=== PATIENT | male | born 1940 | race Caucasian/White ===

== ENCOUNTER → 2017-08-28 08:21 | Outpatient (CLI) | payer MEDICARE, OTHER, SELFPAY ==
[2017-08-28 10:08] VITALS: PULSE 100; PULSE 101; PULSE 109; PULSE 110; PULSE 79; PULSE 82; PULSE 92; PULSE 97; O2SAT 87; O2SAT 91; O2SAT 92; O2SAT 93; O2SAT 94; O2SAT 98
--- NOTE | 2017-08-28 10:12 | CPS ---
Patient wears 2lpm O2 at home PRN with ambulation. Started test on room air SpO2 dropped to 87% by the 2nd minute. Placed patient on 2 lpm O2 for the rest of the test.
--- NOTE | 2017-08-28 13:24 | WT_ITS ---
PSN 6 Minute Walk Test - 6 Minute Walk Test 6 Minute Walk Test: 6 Minute Walk Test PSN:6-Minute Walk Test Start: 08/28/17 10: 07 Freq: Status: Active Protocol: [id number] Document 08/28/17 10:08 MELO (Rec: 08/28/17 10:13 MELO [id number]) 6 Minute Walk Test Date Performed 08/28/17 Time Performed 09:20 Height 5 ft 6 in Weight: 155 lb Weight in Pounds 155.[address]: Cornel Armando Assistive device used: None Pre-test Oxygen Delivery Method Room Air Pulse Ox (%) 93 Pulse Rate (60-100 beats/min) 79 Dyspnea [place] Scale (0-10) 2 Exertion Ana Maria Scale (6-20) 6 1st minute Oxygen Delivery Method Room Air Pulse Ox (%) 91 Pulse Rate (60-100 beats/min) 92 2nd minute Oxygen Delivery Method Room Air Pulse Ox (%) 87 Pulse Rate (60-100 beats/min) 100 3rd minute Oxygen Flow Rate (L/min) (L/min) 2 Oxygen Delivery Method Nasal Cannula Pulse Ox (%) 94 Pulse Rate (60-100 beats/min) 101 H 4th minute Oxygen Flow Rate (L/min) (L/min) 2 Oxygen Delivery Method Nasal Cannula Pulse Ox (%) 92 Pulse Rate (60-100 beats/min) 97 5th minute Oxygen Flow Rate (L/min) (L/min) 2 Oxygen Delivery Method Nasal Cannula Pulse Ox (%) 92 Pulse Rate (60-100 beats/min) 109 H 6th minute Oxygen Flow Rate (L/min) (L/min) 2 Oxygen Delivery Method Nasal Cannula Pulse Ox (%) 91 Pulse Rate (60-100 beats/min) 110 H Dyspnea [place] Maria Scale (0-10) 3 Exertion Ana Maria Scale (6-20) 13 Post-test Oxygen Flow Rate (L/min) (L/min) 2 Oxygen Delivery Method Nasal Cannula Pulse Ox (%) 98 Pulse Rate (60-100 beats/min) 82 Full Laps Walked 18 Partial Lap, Number of Tiles Walked 10 Total Distance Walked (ft) 1072 08/28/17 10:12 Cardiopulmonary Services by Fallon Virk Patient wears 2lpm O2 at home PRN with ambulation. Started test on room air SpO2 dropped to 87% by the 2nd minute. Placed patient on 2 lpm O2 for the rest of the test. Initialized on 08/28/17 10:12 - END OF NOTE - Interpretation Interpretation: The patient ambulated 1072 feet over the course of 6 minutes beginning on room air without assistive devices or breaks. Pretesting oxygen saturation was noted to be 93% on room air. With ambulation, the ant oxygen saturation was 87% at minute #2 of testing. 2 L/min of supplemental oxygen was applied and the patient was able to complete the remainder of the test while maintaining oxygen saturations at or above 88%. The patient did develop physiologic tachycardia with exertion. These findings are consistent with a respiratory limitation to physical exercise. - Recommendations Recommendations: 2 L/min of supplemental oxygen she be utilized with exertion.
== END ==
PROVIDERS: Visit Provider Internal Medicine Critical Care Medicine
DX: Z99.81 Dependence on supplemental oxygen (principal)
CPT/HCPCS: 94618

== ENCOUNTER 2017-11-05 10:09 | Inpatient (IN) | payer MEDICARE, OTHER, SELFPAY ==
[2017-11-05] VITALS (16 sets, daily range): BP systolic 131–162; BP diastolic 56–81; PULSE 78–96; RESP 18–36; TEMP 36.5–36.9; O2SAT 88–100; BMI 26.5; BMI 25.8
--- NOTE | 2017-11-05 10:29 | RAD_ITS ---
STUDY: X-RAY CHEST REASON FOR EXAM: Male, 77 years old. Chest pain and shortness breath. TECHNIQUE: Single frontal view of the chest. COMPARISON: None. FINDINGS: The lungs are hyperexpanded. There are coarsened interstitial markings suggestive of mild chronic fibrosis. No gross focal infiltrates. No gross effusions. Normal size heart. Normal mediastinum and thomas. Normal visualized pulmonary arteries. Normal visualized aortic arch and descending thoracic aorta. There are diffuse degenerative changes of the visualized thoracic spine. There is degenerative osteoarthritis of the bilateral shoulders. There is no demonstrated abnormality of the visualized soft tissue structures of the upper abdomen. RAD/Chest 1 View (Portable) IMPRESSION: There are findings consistent with COPD. There is no evidence of acute chest disease. Electronically Signed: Drake Nails MD at 10:51 EDT , Service support ,
--- NOTE | 2017-11-05 10:29 | EKG12_ITS ---
Test Reason : SOB Blood Pressure : / mmHG Vent. Rate : 084 BPM Atrial Rate : 084 BPM P-R Int : 140 ms QRS Dur : 086 ms QT Int : 380 ms P-R-T Axes : 082 -49 087 degrees QTc Int : 449 ms Normal sinus rhythm with sinus arrhythmia Indeterminate axis Borderline ECG Confirmed by LYDIA POTTER, MAGALY ([id number]), food expeditor GENARO VEGA ([id number]) on 11/08/2017 8:58:56 AM Referred By: LUTHER Confirmed By:MAGALY FREEMAN MD
--- NOTE | 2017-11-05 10:31 | ED.VISSUMM ---
- ER Visit Summary Date of Service: 11/05/17 Chief Complaint: Shortness of breath History of Present Illness: The patient is a 77 M history of COPD on 2 L oxygen at home. States since Monday he has had increasing shortness of breath. Mild cough. Primarily nonproductive. A few times clear phlegm. No chest pain. No hemoptysis. No fever. No history of DVT or PE. No recent immobilization. No leg pain or swelling. Physical Examination: Older male vital signs stable. He is 100% on oxygen. Without oxygen is 88. But is normally on 2-3 L at home. H EENT exam unremarkable. Neck nontender. No JVD. Lungs prolonged respiratory phase bilaterally. Equal symmetrical. Diminished in the bases. Expiratory wheezing throughout. Inspiratory wheezing bilaterally. No rhonchi. No rales. Heart regular rate and rhythm rate about 90. No murmur abdomen soft and nontender. Normal bowel sounds. No peritoneal signs. Moving all 4 extremities. Neurovascularly intact. Calves nontender without edema or cords. Back nontender. Chest wall nontender. No crepitance. Neurologically is awake alert with no focal motor deficits. Test Results: Chest x-ray shows chronic changes no acute process. No pneumonia. Read both by myself and radiologist. EKG sinus rhythm rate of 84 no acute signs of ischemia. White count of 16.1. Hemoglobin is 16. No bands. Electrolytes unremarkable. Normal gap. Normal creatinine. Troponin normal. Emergency Department Course and Treatment: Patient with dyspnea secondary to acute exacerbation of COPD. Will receive increased oxygen nasal cannula. Aerosols both DuoNeb and albuterol. IV Solu-Medrol. On repeat exam at 11:40 AM patient is definitely improved. However he still wheezing. Has poor air movement. And will need to be admitted to the hospital. I discussed that both of the patient and his and are comfortable with the plan. Treatment Plan: I spoke to the hospitalist the patient will be admitted. Disposition: Admission Impression: Acute dyspnea with hypoxia Acute exacerbation of COPD This note was generated with [employer] dictation software. It may contain incorrect words, spelling, and punctuation that were not noted in review of the chart prior to signing ED Disposition - Plan for ED Patient: Chief Complaint: Shortness of Breath Referrals: Care Physician,No Primary [Primary Care Provider] -
[2017-11-05] MEDS: MethylPREDNISolone 125 MG/2 ML Vial IV (10:41)
[2017-11-05] MEDS: Albuterol 2.5 MG/3 ML VIAL.NEB. INHALATION ×3 (10:47→10:50)
[2017-11-05] MEDS: Ipratropium/Albuterol Sulfate 3 ML AMPUL.NEB INHALATION ×4 (10:47→23:06)
[2017-11-05 10:51] LABS: Absolute Lymphocyte Count 1.01 X10^3/ul (0.83-4.51); Absolute Neutrophil Count 13.5 X10^3/uL (2.0-7.7); Basophil# 0.02 X10^3/uL; Basophil% 0.1 % (0-1); Eosinophil# 0.01 X10^3/uL; Eosinophils% 0.1 % (0-5); Hematocrit 48.9 % (40-54); Lymphocyte # 1.01 X10^3/ul (4.0); Lymphocyte % 6.3 % (19-41); Mean Corp Hgb Conc 32.7 g/gl (32-36); Mean Corpuscular Hgb 30.4 pg (27.0-32.0); Mean Corpuscular Volume 92.8 fL (80-94); Mean Platelet Vol. 11.1 fl (6.2-12.0); Monocyte# 1.53 X10^3/uL; Monocyte% 9.5 % (0-10); Neutrophil % 83.8 % (47-70); Platelet Count 145 K/mm3 (150-450); RBC Distribution Width CV 13.4 % (11.6-14.6); RBC Distribution Width SD 44.7 fl (35.1-43.9); Red Blood Count 5.27 M/mm3 (4.6-6.2); White Blood Count 16.1 K/mm3 (4.4-11.0)
[2017-11-05 10:52] LABS: Differential Indicated SCAN CRITERIA MET; POSITIVE COUNT NO; POSITIVE DIFFERENTIAL YES; POSITIVE MORPHOLOGY NO
[2017-11-05 10:56] LABS: Anion Gap 5 (5-15); BUN 17 mg/dL (7-18); BUN/Creat Ratio 19.6 RATIO (10-20); Calcium,Total 8.7 mg/dL (8.5-10.1); Chloride 98 mmol/L (98-107); Creatinine, Serum 0.87 mg/dL (0.70-1.30); EST Glomerular Filtration Rate 90 mL/min (>60); Est Glom Filt Rate - Afr Amer 109 mL/min (>60); Estimated Creatinine Clearance 62.13 ml/min; Glucose 96 mg/dL (74-106); Potassium 4.5 mmol/L (3.5-5.1); Sodium Level 136 mmol/L (136-145)
[2017-11-05 11:13] LABS: Platelet Estimate ADEQUATE (ADEQ); Platelet Morphology LARGE
--- NOTE | 2017-11-05 11:48 | HP.PCM_ITS ---
Problem List (1) COPD exacerbation Status: Acute (2) History of cataract removal with insertion of prosthetic lens Status: Resolved (3) SOB (shortness of breath) Status: Chronic (4) Tobacco abuse Status: Chronic (5) Stage 3 severe COPD by GOLD classification Status: Chronic (6) Chronic hypoxemic respiratory failure Status: Chronic History of Present Illness Date of Admission: 11/05/17 Chief Complaint: Shortness of breath and cough worse since Monday The patient is a 77 year old M with history of COPD, stage III or criteria, chronic hypoxic respiratory failure on 2 L of home oxygen, current smoker came to ER with shortness of breath, progressively getting worse since Monday along with cough. Patient denies any fever or chills. Patient gets short of breath even going to bathroom/mild exertion. He is wheezing. Patient also has frequent urination, especially at night and complete emptying of bladder probably related to undiagnosed BPH. Denies burning micturition. Chest x-ray done in the ER shows right lower lobe atelectasis probably chronic fibrosis. No evidence of acute abnormality. [] Past Medical History Past Medical History (Chronic Problems): Chronic Problems (Last Reviewed 09/11/17 @ 08:03 by Mi Marrero NP-C) SOB (shortness of breath) (Chronic) Tobacco abuse (Chronic) Stage 3 severe COPD by GOLD classification (Chronic) Chronic hypoxemic respiratory failure (Chronic) Medical History: Medical History (Last Reviewed 09/11/17 @ 08:03 by Mi Marrero [employer]-C) SOB (shortness of breath) (Chronic) R06.02 Tobacco abuse (Chronic) Z72.0 Stage 3 severe COPD by GOLD classification (Chronic) J44.9 Chronic hypoxemic respiratory failure (Chronic) J96.11 Allergies No Known Allergies Allergy (Verified 11/05/17 10:09) pollens Allergy (Severe, Uncoded 11/05/17 10:09) Unknown Home Medications: Ambulatory Orders Medication Instructions Recorded albuterol sulfate HFA 90 1 - 2 puff INHALATION Q4H PRN PRN 11/01/17 mcg/actuation aerosol inhaler #3 device tiotropium 2.5 mcg-olodaterol 2.5 2 puff INHALATION QDAY #3 device 11/01/17 mcg/actuation mist for inhalation Surgical History: Surgical History (Last Reviewed 09/11/17 @ 08:03 by MELVIN Romero) History of cataract removal with insertion of prosthetic lens (Resolved) Z98.49 , Z96.1 H/O tooth extraction K08.409 03/06/17, 2 teeth Surgical History: noncontributory Smoking Status: Current every day smoker - Still smokes about half pack per day. Smoking since teenage about a pack per day previously - *Family History Paternal Family History: Family History (Last Reviewed 09/11/17 @ 08:03 by MELVIN Romero) Brother Osteoporosis Father Cancer Mother Arthritis Osteoporosis History Items: No pertinent history Review of Systems Constitutional: Denies: Chills, Fever, Weight Change HEENT: Denies: Head Aches, Sinus Congestion, Sinus Drainage Cardiovascular: Denies: Chest Pain, Palpitations Respiratory: Reports: Cough, Shortness of breath at rest, Shortness of breath upon exertion, Wheezing. Denies: Sputum production Gastrointestinal: Denies: Abdominal Pain, Nausea, Vomiting Genitourinary: Denies: Dysuria Musculoskeletal: Denies: Joint Pain, Joint Tenderness Skin: Denies: Rash, Wounds Neurological: Denies: Numbness, Tingling, Focal weakness Psychiatric: Denies: Anxiety, Depression, Homicidal Ideations, Suicidal Ideations Hematologic/ Lymphatic: Denies: Easy Bruising, Easy Bleeding VTE Information - Inpt Only VTE Present on Admission: No VTE Mechan Device Prophylaxis: None VTE Pharm Prophylaxis ordered?: Yes Patient Problems: Active and Suspected Problems (Last Reviewed 09/11/17 @ 08:03 by Mi Marrero NP-Mariella) COPD exacerbation (Acute) - Physical Exam General: Alert, Oriented x3, Cooperative HEENT: Atraumatic, PERRLA, EOMI, Normocephalic Neck: Supple, No JVD, Negative Carotid Bruits Lungs: Diminished, Rhonchi, Short of Breath, Tachypneic, Wheezes Cardiovascular: Regular rate, Normal S1, Normal S2, No murmurs Abdomen: Bowel Sounds Present, Soft, Non Tender Extremities: No edema, Capillary Refill Less than 3 Seconds Skin: No rashes, No breakdown Musculoskeletal: No Tenderness to Palpation of Joints or Extremities Neurological: Cranial nerves II-XII grossly intact Psych/Mental Status: Normal Affect, Appropriate Vital Signs Pulse Resp BP Pulse Ox 95 18 147/63 H 97 11/05/17 11:43 11/05/17 11:43 11/05/17 11:43 11/05/17 11:43 Oxygen Flow Rate (L/min) 3 Oxygen Delivery Method Nasal Cannula Weight: 164 lb 8 oz Body Mass Index (BMI) 26.5 Laboratory Tests Past 24 Hrs 11/05/17 11/05/17 10:20 10:20 WBC 16.1 H RBC 5.27 Hgb 16.0 Hct 48.9 MCV 92.8 MCH 30.4 MCHC 32.7 RDW 13.4 RDW Differential 44.7 H Plt Count 145 L MPV 11.1 Immature Gran % (Auto) 0.200 Neut % (Auto) 83.8 H Lymph % (Auto) 6.3 L [place] % (Auto) 9.5 Eos % (Auto) 0.1 Baso % (Auto) 0.1 Absolute Neuts (auto) 13.5 H Absolute Lymphs (auto) 1.01 Total Counted Not Reportable Platelet Estimate ADEQUATE Plt Morphology Comment LARGE Sodium 136 Potassium 4.5 Chloride 98 Carbon Dioxide 33.0 H Anion Gap 5 BUN 17 Creatinine 0.87 Estim Creat Clear Calc 62.13 Est GFR (MDRD) Af Amer 109 Est GFR (MDRD) Non-Af 90 BUN/Creatinine Ratio 19.6 Glucose 96 Calcium 8.7 Troponin I < 0.015 Assessment/Plan All Active Problems (Last Reviewed 09/11/17 @ 08:03 by Mi Marrero NP-C) COPD exacerbation (Acute) History of cataract removal with insertion of prosthetic lens (Resolved) The patient is a 77 year old M with history of COPD, stage III or criteria, chronic hypoxic respiratory failure on 2 L of home oxygen, current smoker came to ER with shortness of breath, progressively getting worse since Monday along with cough. Patient denies any fever or chills. Patient gets short of breath even going to bathroom/mild exertion. He is wheezing. Patient also has frequent urination, especially at night and complete emptying of bladder probably related to undiagnosed BPH. Denies burning micturition. Chest x-ray done in the ER shows right lower lobe atelectasis probably chronic fibrosis. No evidence of acute abnormality. EKG shows sinus rhythm at 84 bpm sinus arrhythmia. 1. COPD exacerbation, exact etiology unclear but possible viral bronchitis: Patient is being admitted on regular MedSurg floor. On bronchodilator around- the-clock, Solu-Medrol, incentive spirometry, chest physiotherapy and Mucinex. He follows Dr. Armando as an outpatient. Mild leukocytosis; probably inflammatory/viral bronchitis. Repeat CBC 2. Acute on chronic hypoxic respiratory failure secondary to COPD exacerbation : Currently patient is on 4 L of oxygen. His baseline is 2 L of home oxygen. Oxygen therapy and support. 3. Current smoker with nicotine dependence: Advised smoking cessation. Nicotine patch ordered. DVT prophylaxis: On Lovenox 40 mg subcut daily. Laboratory Results 11/05/17 10:20: WBC 16.1 H, RBC 5.27, Hgb 16.0, Hct 48.9, MCV 92.8, MCH 30.4, MCHC 32.7, RDW 13.4, RDW Differential 44.7 H, Plt Count 145 L, MPV 11.1, Immature Gran % (Auto) 0.200, Neut % (Auto) 83.8 H, Lymph % (Auto) 6.3 L, [place] % (Auto) 9.5, Eos % (Auto) 0.1, Baso % (Auto) 0.1, Absolute Neuts (auto) 13.5 H , Absolute Lymphs (auto) 1.01, Total Counted Not Reportable, Platelet Estimate ADEQUATE, Plt Morphology Comment LARGE 11/05/17 10:20: Sodium 136, Potassium 4.5, Chloride 98, Carbon Dioxide 33.0 H, Anion Gap 5, BUN 17, Creatinine 0.87, Estim Creat Clear Calc 62.13, Est GFR ( MDRD) Af Amer 109, Est GFR (MDRD) Non-Af 90, BUN/Creatinine Ratio 19.6, Glucose 96, Calcium 8.7, Troponin I < 0.015 Clinical Impression(s) from Imaging Studies Chest X-Ray 11/05/17 10:29 IMPRESSION: There are findings consistent with COPD. There is no evidence of acute chest disease. Code Visit Inpatient E&M: 42418 Init Hosp L3
--- NOTE | 2017-11-05 11:48 | NURSING ---
DR [place] FOR DR LOU
--- NOTE | 2017-11-05 11:53 | NURSING ---
MED SURG COPD EXAC YUNIOR
[2017-11-05] MEDS: Enoxaparin 40 MG/0.4 ML Syringe SC (14:57)
[2017-11-05] MEDS: 0.9% NaCl Peripheral Flush Adult/Peds IV (14:58)
[2017-11-05] MEDS: 0.9% Normal Saline 1,000 ML 75 ML IV (14:58)
[2017-11-05] MEDS: Oseltamivir Phosphate 75 MG Capsule PO (18:01)
[2017-11-05] MEDS: guaiFENesin 1,200 MG Tablet 1200 MG PO (22:23)
[2017-11-06] VITALS (9 sets, daily range): BP systolic 145–149; BP diastolic 67–81; PULSE 79–96; RESP 18–22; TEMP 36.6; O2SAT 91–98
--- NOTE | 2017-11-06 00:59 | NURSING ---
Verbal report given to DEVANTE Sanchez to take over primary care of this patient.
[2017-11-06 06:26] LABS: Absolute Lymphocyte Count 0.64 X10^3/ul (0.83-4.51); Absolute Neutrophil Count 14.5 X10^3/uL (2.0-7.7); Basophil# 0.01 X10^3/uL; Basophil% 0.1 % (0-1); Hematocrit 43.2 % (40-54); Hemoglobin 14.2 g/dl (13.0-16.5); Lymphocyte # 0.64 X10^3/ul (4.0); Lymphocyte % 4.1 % (19-41); Mean Corp Hgb Conc 32.9 g/gl (32-36); Mean Corpuscular Hgb 30.5 pg (27.0-32.0); Mean Corpuscular Volume 92.9 fL (80-94); Mean Platelet Vol. 11.4 fl (6.2-12.0); Monocyte# 0.32 X10^3/uL; Monocyte% 2.1 % (0-10); Neutrophil # 14.51 X10^3/uL (2.7-7.7); Neutrophil % 93.5 % (47-70); Platelet Count 134 K/mm3 (150-450); RBC Distribution Width SD 43.5 fl (35.1-43.9); Red Blood Count 4.65 M/mm3 (4.6-6.2); White Blood Count 15.5 K/mm3 (4.4-11.0)
[2017-11-06 06:36] LABS: POSITIVE COUNT NO; POSITIVE DIFFERENTIAL NO; POSITIVE MORPHOLOGY NO
[2017-11-06] MEDS: Ipratropium/Albuterol Sulfate 3 ML AMPUL.NEB INHALATION ×5 (07:02→23:22)
[2017-11-06] MEDS: guaiFENesin 1,200 MG Tablet 1200 MG PO ×2 (08:11→21:10)
[2017-11-06] MEDS: Oseltamivir Phosphate 75 MG Capsule PO ×2 (08:11→21:11)
--- NOTE | 2017-11-06 11:15 | CASEMGMT ---
DEVANTE DANIEL Face to Face with patient for initial transition planning/care coordination assessment. RN CM introduced self and role at [facility]. Patient lying in bed, alert and oriented, at bedside. Patient willing to participate in assessment and is able to answer all questions appropriately. Care providers, pharmacy, and demographics verified. See link attached. Patient wishes to discharge home, denies need for home health at this time. Patient states he has no further needs or concerns at this time. CM to follow for discharge planning needs that may arise. Disposition Plan: Patient to discharge home with family support and follow-up plans in place. Will monitor need for more oxygen at home. Alejandra VILLASENOR, RN, CM
--- NOTE | 2017-11-06 13:57 | PCM.PN.HOSP ---
Patient Problems: Active and Suspected Problems (Last Reviewed 09/11/17 @ 08:03 by MELVIN Romero) COPD exacerbation (Acute) Subjective: Patient has influenza A positive. Preliminary Gram stain of sputum culture growing alpha hemolytic organism most probably streptococci. Vitals/I&O's: Vital Signs Temp Pulse Resp BP Pulse Ox 97.8 F 84 21 H 149/73 H 95 11/06/17 08:05 11/06/17 11:10 11/06/17 11:10 11/06/17 08:05 11/06/17 08:05 Oxygen Flow Rate (L/min) 2 Oxygen Delivery Method Nasal Cannula Weight: 160 lb Body Mass Index (BMI) 25.8 Intake and Output for Last 24 Hours 11/04/17 11/05/17 11/06/17 23:59 23:59 23:59 Intake Total 771 / 771 1269 / 1269 Output Total 225 / 225 Balance 771 / 771 1044 / 1044 General: Alert, Oriented x3, Cooperative HEENT: Atraumatic, PERRLA, EOMI, Normocephalic Neck: Supple, No JVD, Negative Carotid Bruits Lungs: Diminished, Rhonchi, Short of Breath, Tachypneic, Wheezes Cardiovascular: Regular rate, Regular Rhythm, Normal S1, Normal S2, No murmurs Abdomen: Bowel Sounds Present, Soft, Non Tender Extremities: No edema, Capillary Refill Less than 3 Seconds Skin: No rashes, No breakdown Musculoskeletal: No Tenderness to Palpation of Joints or Extremities Neurological: Cranial nerves II-XII grossly intact Psych/Mental Status: Normal Affect, Appropriate Microbiology Past 72 Hours 11/05/17 22:30 Sputum, Expectorated/Coughed Gram Stain - Final 11/05/17 22:30 Sputum, Expectorated/Coughed Respiratory Culture - Preliminary Alpha hemolytic organism 11/05/17 15:00 Urine, Clean Catch Legionella Antigen - Final 11/05/17 15:00 Urine, Clean Catch Streptococcus pneumoniae Antigen (M - Final 11/05/17 15:00 Mucosa - Nasopharyngeal Influenza Types A,B Direct FA (ILIA) - Final Influenzae A Laboratory Results 11/06/17 05:44: WBC 15.5 H, RBC 4.65, Hgb 14.2, Hct 43.2, MCV 92.9, MCH 30.5, MCHC 32.9, RDW 13.0, RDW Differential 43.5, Plt Count 134 L, MPV 11.4, Immature Gran % (Auto) 0.200, Neut % (Auto) 93.5 H, Lymph % (Auto) 4.1 L, [place] % (Auto) 2.1, Eos % (Auto) 0.0, Baso % (Auto) 0.1, Absolute Neuts (auto) 14.5 H, Absolute Lymphs (auto) 0.64 L, Total Counted Not Reportable Current Medications Acetaminophen (Tylenol) 650 mg PO Q6H PRN PRN PRN Reason: Mild Pain (scale 0-3)/T>100.7 Albuterol Sulfate (Ventolin Aerosols) 2.5 mg INHALATION Q2H PRN PRN PRN Reason: SHORTNESS OF BREATH Albuterol/Ipratropium (Duoneb) 3 ml INHALATION Q4H.RT [facility] Last Admin: 11/06/17 11:10 Dose: 3 ml Docusate Sodium (Colace) 200 mg PO BID PRN PRN PRN Reason: Constipation Enoxaparin Sodium (Lovenox) 40 mg SC DAILY [facility] Last Admin: 11/06/17 08:09 Dose: Not Given Guaifenesin (Mucinex) 1,200 mg PO BID [facility] Last Admin: 11/06/17 08:11 Dose: 1,200 mg Azithromycin 500 mg/ Dextrose 255 mls @ 250 mls/hr IV Q24 [facility] Stop: 11/07/17 11:02 Last Admin: 11/06/17 10:21 Dose: 250 mls/hr Methylprednisolone (Solu-Medrol) 40 mg IV Q8 [facility] Last Admin: 11/06/17 05:33 Dose: 40 mg Nicotine (Nicoderm Cq (Pbkc)) 21 mg TRANSDERM. DAILY [facility] Last Admin: 11/06/17 08:08 Dose: Not Given Ondansetron HCl (Zofran) 4 mg IV Q8H PRN PRN PRN Reason: Nausea Oseltamivir Phosphate (Tamiflu) 75 mg PO BID [facility] Stop: 11/10/17 10:01 Last Admin: 11/06/17 08:11 Dose: 75 mg Oxycodone HCl (Oxyir) 5 mg PO Q4H PRN PRN PRN Reason: Moderate Pain (pain scale 4-5) Polyethylene Glycol (Miralax) 17 gm PO DAILY [facility] Last Admin: 11/06/17 08:10 Dose: Not Given Sodium Chloride () 5 - 30 ml IV UD PRN PRN Reason: SALINE FLUSH Last Admin: 11/05/17 14:58 Dose: 10 ml Medical Necessity - Tobacco Use Smoking Status: Current every day smoker - Still smokes about half pack per day. Smoking since teenage about a pack per day previously Assessment/Plan All Active Problems (Last Reviewed 09/11/17 @ 08:03 by STARR RomeroC) COPD exacerbation (Acute) History of cataract removal with insertion of prosthetic lens (Resolved) The patient is a 77 year old M with history of COPD, stage III or criteria, chronic hypoxic respiratory failure on 2 L of home oxygen, current smoker came to ER with shortness of breath, progressively getting worse since Monday along with cough. Patient denies any fever or chills. Patient gets short of breath even going to bathroom/mild exertion. He is wheezing. Patient also has frequent urination, especially at night and complete emptying of bladder probably related to undiagnosed BPH. Denies burning micturition. Chest x-ray done in the ER shows right lower lobe atelectasis probably chronic fibrosis. No evidence of acute abnormality. EKG shows sinus rhythm at 84 bpm sinus arrhythmia. 1. COPD exacerbation, exact etiology unclear but possible viral/bacterial bronchitis: Patient is being admitted on regular MedSurg floor. On bronchodilator [id number], Solu-Medrol, incentive spirometry, chest physiotherapy and Mucinex. He follows Dr. Armando as an outpatient. 2. Acute bronchitis most probably from influenza A and/or alphahemolytic streptococci: Patient did not had a fever. Started on Tamiflu yesterday. Rocephin added because of prelim Gram stain of his sputum culture shows alpha hemolytic organisms. Repeat CBC 2. Acute on chronic hypoxic respiratory failure secondary to COPD exacerbation: Currently patient is on 4 L of oxygen. His baseline is 2 L of home oxygen. Oxygen therapy and support. 3. Current smoker with nicotine dependence: Advised smoking cessation. Nicotine patch ordered. DVT prophylaxis: On Lovenox 40 mg subcut daily. Microbiology Past 72 Hours 11/05/17 22:30 Sputum, Expectorated/Coughed Gram Stain - Final 11/05/17 22:30 Sputum, Expectorated/Coughed Respiratory Culture - Preliminary Alpha hemolytic organism 11/05/17 15:00 Urine, Clean Catch Legionella Antigen - Final 11/05/17 15:00 Urine, Clean Catch Streptococcus pneumoniae Antigen (M - Final 11/05/17 15:00 Mucosa - Nasopharyngeal Influenza Types A,B Direct FA (ILIA) - Final Influenzae A Laboratory Results 11/06/17 05:44: WBC 15.5 H, RBC 4.65, Hgb 14.2, Hct 43.2, MCV 92.9, MCH 30.5, MCHC 32.9, RDW 13.0, RDW Differential 43.5, Plt Count 134 L, MPV 11.4, Immature Gran % (Auto) 0.200, Neut % (Auto) 93.5 H, Lymph % (Auto) 4.1 L, [place] % (Auto) 2.1, Eos % (Auto) 0.0, Baso % (Auto) 0.1, Absolute Neuts (auto) 14.5 H, Absolute Lymphs (auto) 0.64 L, Total Counted Not Reportable Clinical Impression(s) from Imaging Studies Chest X-Ray 11/05/17 10:29 IMPRESSION: There are findings consistent with COPD. There is no evidence of acute chest disease. Code Visit Inpatient E&M: 97091 Subs Hosp L3
--- NOTE | 2017-11-06 14:02 | PN_ITS ---
Patient Problems: Active and Suspected Problems (Last Reviewed 09/11/17 @ 08:03 by MELVIN Romero) COPD exacerbation (Acute) Subjective: Patient has influenza A positive. Preliminary Gram stain of sputum culture growing alpha hemolytic organism most probably streptococci. Vitals/I&O's: Vital Signs Temp Pulse Resp BP Pulse Ox 97.8 F 84 21 H 149/73 H 95 11/06/17 08:05 11/06/17 11:10 11/06/17 11:10 11/06/17 08:05 11/06/17 08:05 Oxygen Flow Rate (L/min) 2 Oxygen Delivery Method Nasal Cannula Weight: 160 lb Body Mass Index (BMI) 25.8 Intake and Output for Last 24 Hours 11/04/17 11/05/17 11/06/17 23:59 23:59 23:59 Intake Total 771 / 771 1269 / 1269 Output Total 225 / 225 Balance 771 / 771 1044 / 1044 General: Alert, Oriented x3, Cooperative HEENT: Atraumatic, PERRLA, EOMI, Normocephalic Neck: Supple, No JVD, Negative Carotid Bruits Lungs: Diminished, Rhonchi, Short of Breath, Tachypneic, Wheezes Cardiovascular: Regular rate, Regular Rhythm, Normal S1, Normal S2, No murmurs Abdomen: Bowel Sounds Present, Soft, Non Tender Extremities: No edema, Capillary Refill Less than 3 Seconds Skin: No rashes, No breakdown Musculoskeletal: No Tenderness to Palpation of Joints or Extremities Neurological: Cranial nerves II-XII grossly intact Psych/Mental Status: Normal Affect, Appropriate Microbiology Past 72 Hours 11/05/17 22:30 Sputum, Expectorated/Coughed Gram Stain - Final 11/05/17 22:30 Sputum, Expectorated/Coughed Respiratory Culture - Preliminary Alpha hemolytic organism 11/05/17 15:00 Urine, Clean Catch Legionella Antigen - Final 11/05/17 15:00 Urine, Clean Catch Streptococcus pneumoniae Antigen (M - Final 11/05/17 15:00 Mucosa - Nasopharyngeal Influenza Types A,B Direct FA (ILIA) - Final Influenzae A Laboratory Results 11/06/17 05:44: WBC 15.5 H, RBC 4.65, Hgb 14.2, Hct 43.2, MCV 92.9, MCH 30.5, MCHC 32.9, RDW 13.0, RDW Differential 43.5, Plt Count 134 L, MPV 11.4, Immature Gran % (Auto) 0.200, Neut % (Auto) 93.5 H, Lymph % (Auto) 4.1 L, [place] % (Auto) 2.1, Eos % (Auto) 0.0, Baso % (Auto) 0.1, Absolute Neuts (auto) 14.5 H, Absolute Lymphs (auto) 0.64 L, Total Counted Not Reportable Current Medications Acetaminophen (Tylenol) 650 mg PO Q6H PRN PRN PRN Reason: Mild Pain (scale 0-3)/T>100.7 Albuterol Sulfate (Ventolin Aerosols) 2.5 mg INHALATION Q2H PRN PRN PRN Reason: SHORTNESS OF BREATH Albuterol/Ipratropium (Duoneb) 3 ml INHALATION Q4H.RT [facility] Last Admin: 11/06/17 11:10 Dose: 3 ml Docusate Sodium (Colace) 200 mg PO BID PRN PRN PRN Reason: Constipation Enoxaparin Sodium (Lovenox) 40 mg SC DAILY [facility] Last Admin: 11/06/17 08:09 Dose: Not Given Guaifenesin (Mucinex) 1,200 mg PO BID [facility] Last Admin: 11/06/17 08:11 Dose: 1,200 mg Azithromycin 500 mg/ Dextrose 255 mls @ 250 mls/hr IV Q24 [facility] Stop: 11/07/17 11:02 Last Admin: 11/06/17 10:21 Dose: 250 mls/hr Methylprednisolone (Solu-Medrol) 40 mg IV Q8 [facility] Last Admin: 11/06/17 05:33 Dose: 40 mg Nicotine (Nicoderm Cq (Pbkc)) 21 mg TRANSDERM. DAILY [facility] Last Admin: 11/06/17 08:08 Dose: Not Given Ondansetron HCl (Zofran) 4 mg IV Q8H PRN PRN PRN Reason: Nausea Oseltamivir Phosphate (Tamiflu) 75 mg PO BID [facility] Stop: 11/10/17 10:01 Last Admin: 11/06/17 08:11 Dose: 75 mg Oxycodone HCl (Oxyir) 5 mg PO Q4H PRN PRN PRN Reason: Moderate Pain (pain scale 4-5) Polyethylene Glycol (Miralax) 17 gm PO DAILY [facility] Last Admin: 11/06/17 08:10 Dose: Not Given Sodium Chloride () 5 - 30 ml IV UD PRN PRN Reason: SALINE FLUSH Last Admin: 11/05/17 14:58 Dose: 10 ml Medical Necessity - Tobacco Use Smoking Status: Current every day smoker - Still smokes about half pack per day. Smoking since teenage about a pack per day previously Assessment/Plan All Active Problems (Last Reviewed 09/11/17 @ 08:03 by STARR RomeroC) COPD exacerbation (Acute) History of cataract removal with insertion of prosthetic lens (Resolved) The patient is a 77 year old M with history of COPD, stage III or criteria, chronic hypoxic respiratory failure on 2 L of home oxygen, current smoker came to ER with shortness of breath, progressively getting worse since Monday along with cough. Patient denies any fever or chills. Patient gets short of breath even going to bathroom/mild exertion. He is wheezing. Patient also has frequent urination, especially at night and complete emptying of bladder probably related to undiagnosed BPH. Denies burning micturition. Chest x-ray done in the ER shows right lower lobe atelectasis probably chronic fibrosis. No evidence of acute abnormality. EKG shows sinus rhythm at 84 bpm sinus arrhythmia. 1. COPD exacerbation, exact etiology unclear but possible viral/bacterial bronchitis: Patient is being admitted on regular MedSurg floor. On bronchodilator [id number], Solu-Medrol, incentive spirometry, chest physiotherapy and Mucinex. He follows Dr. Armando as an outpatient. 2. Acute bronchitis most probably from influenza A and/or alphahemolytic streptococci: Patient did not had a fever. Started on Tamiflu yesterday. Rocephin added because of prelim Gram stain of his sputum culture shows alpha hemolytic organisms. Repeat CBC 2. Acute on chronic hypoxic respiratory failure secondary to COPD exacerbation : Currently patient is on 4 L of oxygen. His baseline is 2 L of home oxygen. Oxygen therapy and support. 3. Current smoker with nicotine dependence: Advised smoking cessation. Nicotine patch ordered. DVT prophylaxis: On Lovenox 40 mg subcut daily. Microbiology Past 72 Hours 11/05/17 22:30 Sputum, Expectorated/Coughed Gram Stain - Final 11/05/17 22:30 Sputum, Expectorated/Coughed Respiratory Culture - Preliminary Alpha hemolytic organism 11/05/17 15:00 Urine, Clean Catch Legionella Antigen - Final 11/05/17 15:00 Urine, Clean Catch Streptococcus pneumoniae Antigen (M - Final 11/05/17 15:00 Mucosa - Nasopharyngeal Influenza Types A,B Direct FA (ILIA) - Final Influenzae A Laboratory Results 11/06/17 05:44: WBC 15.5 H, RBC 4.65, Hgb 14.2, Hct 43.2, MCV 92.9, MCH 30.5, MCHC 32.9, RDW 13.0, RDW Differential 43.5, Plt Count 134 L, MPV 11.4, Immature Gran % (Auto) 0.200, Neut % (Auto) 93.5 H, Lymph % (Auto) 4.1 L, [place] % (Auto) 2.1, Eos % (Auto) 0.0, Baso % (Auto) 0.1, Absolute Neuts (auto) 14.5 H, Absolute Lymphs (auto) 0.64 L, Total Counted Not Reportable Clinical Impression(s) from Imaging Studies Chest X-Ray 11/05/17 10:29 IMPRESSION: There are findings consistent with COPD. There is no evidence of acute chest disease. Code Visit Inpatient E&M: 40499 Subs Hosp L3
[2017-11-06] MEDS: Ceftriaxone 1 GM/50 ML BAG IV (14:58)
--- NOTE | 2017-11-06 19:13 | NURSING ---
Pt notified this nurse that he had his bring in a razor. Stated he cut himself right below the lip while shaving. He had already got the bleeding to stop before he notified me. Stated he knew he wasn't supposed to use a razor, but he needed to shave. Reminded the pt that we have an electric razor that he could use and that he can not use a traditional razor.
[2017-11-07] VITALS (12 sets, daily range): BP systolic 135–168; BP diastolic 73–94; PULSE 81–104; RESP 18–23; TEMP 36.5–37.1; O2SAT 85–96
[2017-11-07 06:44] LABS: Anion Gap 7 (5-15); BUN 25 mg/dL (7-18); BUN/Creat Ratio 33.7 RATIO (10-20); Calcium,Total 8.9 mg/dL (8.5-10.1); Chloride 98 mmol/L (98-107); Creatinine, Serum 0.74 mg/dL (0.70-1.30); EST Glomerular Filtration Rate 108 mL/min (>60); Est Glom Filt Rate - Afr Amer 131 mL/min (>60); Estimated Creatinine Clearance 54.05 ml/min; Glucose 134 mg/dL (74-106); Potassium 4.5 mmol/L (3.5-5.1); Sodium Level 136 mmol/L (136-145)
[2017-11-07 07:04] LABS: Absolute Lymphocyte Count 0.74 X10^3/ul (0.83-4.51); Absolute Neutrophil Count 20.3 X10^3/uL (2.0-7.7); Hematocrit 43.6 % (40-54); Hemoglobin 14.2 g/dl (13.0-16.5); Lymphocyte # 0.74 X10^3/ul (4.0); Lymphocyte % 3.4 % (19-41); Mean Corp Hgb Conc 32.6 g/gl (32-36); Mean Corpuscular Hgb 30.2 pg (27.0-32.0); Mean Corpuscular Volume 92.8 fL (80-94); Mean Platelet Vol. 11.6 fl (6.2-12.0); Monocyte# 0.66 X10^3/uL; Neutrophil # 20.31 X10^3/uL (2.7-7.7); Neutrophil % 93.3 % (47-70); Platelet Count 153 K/mm3 (150-450); RBC Distribution Width SD 43.5 fl (35.1-43.9); White Blood Count 21.8 K/mm3 (4.4-11.0)
[2017-11-07 07:08] LABS: Differential Indicated SCAN CRITERIA MET; POSITIVE COUNT NO; POSITIVE DIFFERENTIAL YES; POSITIVE MORPHOLOGY NO
[2017-11-07] MEDS: Ipratropium/Albuterol Sulfate 3 ML AMPUL.NEB INHALATION ×4 (07:30→19:30)
[2017-11-07] MEDS: Polyethylene Glycol 3350 17 GM PACKET PO (09:30)
[2017-11-07] MEDS: guaiFENesin 1,200 MG Tablet 1200 MG PO ×2 (09:31→21:05)
[2017-11-07] MEDS: Oseltamivir Phosphate 75 MG Capsule PO ×2 (09:32→21:05)
[2017-11-07] MEDS: Ceftriaxone 1 GM/50 ML BAG IV (09:32)
--- NOTE | 2017-11-07 11:49 | PCM.PN.HOSP ---
Patient Problems: Active and Suspected Problems (Last Reviewed 09/11/17 @ 08:03 by MELVIN Romero) COPD exacerbation (Acute) Subjective: Patient is still very short of breath, cough and hypoxic. He wants to go home but gets short of breath on walking from bed to bathroom Vitals/I&O's: Vital Signs Temp Pulse Resp BP Pulse Ox 97.7 F L 100 20 H 168/94 H 85 11/07/17 07:26 11/07/17 07:30 11/07/17 11:00 11/07/17 07:26 11/07/17 11:12 Oxygen Flow Rate (L/min) [ 2 AMBULATION with Oxygen] Oxygen Flow Rate (L/min) 2 Oxygen Delivery Method Nasal Cannula Weight: 160 lb Body Mass Index (BMI) 25.8 Intake and Output for Last 24 Hours 11/05/17 11/06/17 11/07/17 23:59 23:59 23:59 Intake Total 771 / 771 1954 / 1954 1414 / 1414 Output Total 425 / 425 200 / 200 Balance 771 / 771 1529 / 1529 1214 / 1214 General: Alert, Oriented x3, Cooperative HEENT: Atraumatic, PERRLA, EOMI, Normocephalic Neck: Supple, No JVD, Negative Carotid Bruits Lungs: Diminished, Rhonchi, Short of Breath, Tachypneic, Wheezes Cardiovascular: Regular rate, Regular Rhythm, Normal S1, Normal S2, No murmurs Abdomen: Bowel Sounds Present, Soft, Non Tender, Non-Distended Extremities: No edema, Capillary Refill Less than 3 Seconds Skin: No rashes, No breakdown Musculoskeletal: No Tenderness to Palpation of Joints or Extremities Neurological: Cranial nerves II-XII grossly intact Psych/Mental Status: Normal Affect, Appropriate Microbiology Past 72 Hours 11/05/17 22:30 Sputum, Expectorated/Coughed Gram Stain - Final 11/05/17 22:30 Sputum, Expectorated/Coughed Respiratory Culture - Preliminary Alpha hemolytic organism 11/05/17 15:00 Urine, Clean Catch Legionella Antigen - Final 11/05/17 15:00 Urine, Clean Catch Streptococcus pneumoniae Antigen (M - Final 11/05/17 15:00 Mucosa - Nasopharyngeal Influenza Types A,B Direct FA (ILIA) - Final Influenzae A Laboratory Results 11/07/17 05:47: WBC 21.8 H, RBC 4.70, Hgb 14.2, Hct 43.6, MCV 92.8, MCH 30.2, MCHC 32.6, RDW 13.0, RDW Differential 43.5, Plt Count 153, MPV 11.6, Immature Gran % (Auto) 0.300, Neut % (Auto) 93.3 H, Lymph % (Auto) 3.4 L, [place] % (Auto) 3.0, Eos % (Auto) 0.0, Baso % (Auto) 0.0, Absolute Neuts (auto) 20.3 H, Absolute Lymphs (auto) 0.74 L, Total Counted Not Reportable, Differential Comment COMMENT 11/07/17 05:47: Sodium 136, Potassium 4.5, Chloride 98, Carbon Dioxide 31.0, Anion Gap 7, BUN 25 H, Creatinine 0.74, Estim Creat Clear Calc 54.05, Est GFR (MDRD) Af Amer 131, Est GFR (MDRD) Non-Af 108, BUN/Creatinine Ratio 33.7 H, Glucose 134 H, Calcium 8.9 Current Medications Acetaminophen (Tylenol) 650 mg PO Q6H PRN PRN PRN Reason: Mild Pain (scale 0-3)/T>100.7 Albuterol Sulfate (Ventolin Aerosols) 2.5 mg INHALATION Q2H PRN PRN PRN Reason: SHORTNESS OF BREATH Albuterol/Ipratropium (Duoneb) 3 ml INHALATION Q4H.RT [facility] Last Admin: 11/07/17 11:40 Dose: 3 ml Docusate Sodium (Colace) 200 mg PO BID PRN PRN PRN Reason: Constipation Enoxaparin Sodium (Lovenox) 40 mg SC DAILY [facility] Last Admin: 11/07/17 09:30 Dose: Not Given Guaifenesin (Mucinex) 1,200 mg PO BID [facility] Last Admin: 11/07/17 09:31 Dose: 1,200 mg Ceftriaxone Sodium (Rocephin) 1 gm in 50 mls @ 100 mls/hr IV Q24 [facility] Last Admin: 11/07/17 09:32 Dose: 100 mls/hr Methylprednisolone (Solu-Medrol) 40 mg IV Q8 [facility] Last Admin: 11/07/17 05:32 Dose: 40 mg Nicotine (Nicoderm Cq (Pbkc)) 21 mg TRANSDERM. DAILY [facility] Last Admin: 11/07/17 09:32 Dose: Not Given Ondansetron HCl (Zofran) 4 mg IV Q8H PRN PRN PRN Reason: Nausea Oseltamivir Phosphate (Tamiflu) 75 mg PO BID [facility] Stop: 11/10/17 10:01 Last Admin: 11/07/17 09:32 Dose: 75 mg Oxycodone HCl (Oxyir) 5 mg PO Q4H PRN PRN PRN Reason: Moderate Pain (pain scale 4-5) Polyethylene Glycol (Miralax) 17 gm PO DAILY [facility] Last Admin: 11/07/17 09:30 Dose: 17 gm Sodium Chloride () 5 - 30 ml IV UD PRN PRN Reason: SALINE FLUSH Last Admin: 11/05/17 14:58 Dose: 10 ml Medical Necessity - Tobacco Use Smoking Status: Current every day smoker - Still smokes about half pack per day. Smoking since teenage about a pack per day previously Assessment/Plan All Active Problems (Last Reviewed 09/11/17 @ 08:03 by Mi Marrero, ZELDA-C) COPD exacerbation (Acute) History of cataract removal with insertion of prosthetic lens (Resolved) The patient is a 77 year old M with history of COPD, stage III or criteria, chronic hypoxic respiratory failure on 2 L of home oxygen, current smoker came to ER with shortness of breath, progressively getting worse since Monday along with cough. Patient denies any fever or chills. Patient gets short of breath even going to bathroom/mild exertion. He is wheezing. Patient also has frequent urination, especially at night and complete emptying of bladder probably related to undiagnosed BPH. Denies burning micturition. Chest x-ray done in the ER shows right lower lobe atelectasis probably chronic fibrosis. No evidence of acute abnormality. EKG shows sinus rhythm at 84 bpm sinus arrhythmia. 1. COPD exacerbation, exact etiology unclear but possible viral/bacterial bronchitis: Patient is being admitted on regular MedSurg floor. On bronchodilator [id number], Solu-Medrol, incentive spirometry, chest physiotherapy and Mucinex. He follows Dr. Armnado as an outpatient. 2. Acute bronchitis most probably from influenza A and/or alphahemolytic streptococci: Patient did not had a fever. Started on Tamiflu yesterday. Rocephin added because of prelim Gram stain of his sputum culture shows alpha hemolytic organisms. Repeat CBC 2. Acute on chronic hypoxic respiratory failure secondary to COPD exacerbation: Currently patient is on 4 L of oxygen. His baseline is 2 L of home oxygen. Oxygen therapy and support. Pulse ox is 85% on room air at rest. On 2 L of oxygen on walking it dropped to 86-88%. 3. Current smoker with nicotine dependence: Advised smoking cessation. Nicotine patch ordered. DVT prophylaxis: On Lovenox 40 mg subcut daily. Microbiology Past 72 Hours 11/05/17 22:30 Sputum, Expectorated/Coughed Gram Stain - Final 11/05/17 22:30 Sputum, Expectorated/Coughed Respiratory Culture - Preliminary Alpha hemolytic organism 11/05/17 15:00 Urine, Clean Catch Legionella Antigen - Final 11/05/17 15:00 Urine, Clean Catch Streptococcus pneumoniae Antigen (M - Final 11/05/17 15:00 Mucosa - Nasopharyngeal Influenza Types A,B Direct FA (ILIA) - Final Influenzae A Laboratory Results 11/07/17 05:47: WBC 21.8 H, RBC 4.70, Hgb 14.2, Hct 43.6, MCV 92.8, MCH 30.2, MCHC 32.6, RDW 13.0, RDW Differential 43.5, Plt Count 153, MPV 11.6, Immature Gran % (Auto) 0.300, Neut % (Auto) 93.3 H, Lymph % (Auto) 3.4 L, [place] % (Auto) 3.0, Eos % (Auto) 0.0, Baso % (Auto) 0.0, Absolute Neuts (auto) 20.3 H, Absolute Lymphs (auto) 0.74 L, Total Counted Not Reportable, Differential Comment COMMENT 11/07/17 05:47: Sodium 136, Potassium 4.5, Chloride 98, Carbon Dioxide 31.0, Anion Gap 7, BUN 25 H, Creatinine 0.74, Estim Creat Clear Calc 54.05, Est GFR (MDRD) Af Amer 131, Est GFR (MDRD) Non-Af 108, BUN/Creatinine Ratio 33.7 H, Glucose 134 H, Calcium 8.9 Clinical Impression(s) from Imaging Studies Chest X-Ray 11/05/17 10:29 IMPRESSION: There are findings consistent with COPD. There is no evidence of acute chest disease. Microbiology Past 72 Hours 11/05/17 22:30 Sputum, Expectorated/Coughed Gram Stain - Final 11/05/17 22:30 Sputum, Expectorated/Coughed Respiratory Culture - Preliminary Alpha hemolytic organism 11/05/17 15:00 Urine, Clean Catch Legionella Antigen - Final 11/05/17 15:00 Urine, Clean Catch Streptococcus pneumoniae Antigen (M - Final 11/05/17 15:00 Mucosa - Nasopharyngeal Influenza Types A,B Direct FA (ILIA) - Final Influenzae A Active Medications Acetaminophen (Tylenol) 650 mg PO Q6H PRN PRN PRN Reason: Mild Pain (scale 0-3)/T>100.7 Albuterol Sulfate (Ventolin Aerosols) 2.5 mg INHALATION Q2H PRN PRN PRN Reason: SHORTNESS OF BREATH Albuterol/Ipratropium (Duoneb) 3 ml INHALATION Q4H.RT [facility] Last Admin: 11/07/17 11:40 Dose: 3 ml Docusate Sodium (Colace) 200 mg PO BID PRN PRN PRN Reason: Constipation Enoxaparin Sodium (Lovenox) 40 mg SC DAILY [facility] Last Admin: 11/07/17 09:30 Dose: Not Given Guaifenesin (Mucinex) 1,200 mg PO BID [facility] Last Admin: 11/07/17 09:31 Dose: 1,200 mg Ceftriaxone Sodium (Rocephin) 1 gm in 50 mls @ 100 mls/hr IV Q24 [facility] Last Admin: 11/07/17 09:32 Dose: 100 mls/hr Methylprednisolone (Solu-Medrol) 40 mg IV Q8 [facility] Last Admin: 11/07/17 05:32 Dose: 40 mg Nicotine (Nicoderm Cq (Pbkc)) 21 mg TRANSDERM. DAILY [facility] Last Admin: 11/07/17 09:32 Dose: Not Given Ondansetron HCl (Zofran) 4 mg IV Q8H PRN PRN PRN Reason: Nausea Oseltamivir Phosphate (Tamiflu) 75 mg PO BID [facility] Stop: 11/10/17 10:01 Last Admin: 11/07/17 09:32 Dose: 75 mg Oxycodone HCl (Oxyir) 5 mg PO Q4H PRN PRN PRN Reason: Moderate Pain (pain scale 4-5) Polyethylene Glycol (Miralax) 17 gm PO DAILY [facility] Last Admin: 11/07/17 09:30 Dose: 17 gm Sodium Chloride () 5 - 30 ml IV UD PRN PRN Reason: SALINE FLUSH Last Admin: 11/05/17 14:58 Dose: 10 ml Code Visit Inpatient E&M: 11279 Subs Hosp L3
--- NOTE | 2017-11-07 11:52 | PN_ITS ---
Patient Problems: Active and Suspected Problems (Last Reviewed 09/11/17 @ 08:03 by MELVIN Romero) COPD exacerbation (Acute) Subjective: Patient is still very short of breath, cough and hypoxic. He wants to go home but gets short of breath on walking from bed to bathroom Vitals/I&O's: Vital Signs Temp Pulse Resp BP Pulse Ox 97.7 F L 100 20 H 168/94 H 85 11/07/17 07:26 11/07/17 07:30 11/07/17 11:00 11/07/17 07:26 11/07/17 11:12 Oxygen Flow Rate (L/min) [ 2 AMBULATION with Oxygen] Oxygen Flow Rate (L/min) 2 Oxygen Delivery Method Nasal Cannula Weight: 160 lb Body Mass Index (BMI) 25.8 Intake and Output for Last 24 Hours 11/05/17 11/06/17 11/07/17 23:59 23:59 23:59 Intake Total 771 / 771 1954 / 1954 1414 / 1414 Output Total 425 / 425 200 / 200 Balance 771 / 771 1529 / 1529 1214 / 1214 General: Alert, Oriented x3, Cooperative HEENT: Atraumatic, PERRLA, EOMI, Normocephalic Neck: Supple, No JVD, Negative Carotid Bruits Lungs: Diminished, Rhonchi, Short of Breath, Tachypneic, Wheezes Cardiovascular: Regular rate, Regular Rhythm, Normal S1, Normal S2, No murmurs Abdomen: Bowel Sounds Present, Soft, Non Tender, Non-Distended Extremities: No edema, Capillary Refill Less than 3 Seconds Skin: No rashes, No breakdown Musculoskeletal: No Tenderness to Palpation of Joints or Extremities Neurological: Cranial nerves II-XII grossly intact Psych/Mental Status: Normal Affect, Appropriate Microbiology Past 72 Hours 11/05/17 22:30 Sputum, Expectorated/Coughed Gram Stain - Final 11/05/17 22:30 Sputum, Expectorated/Coughed Respiratory Culture - Preliminary Alpha hemolytic organism 11/05/17 15:00 Urine, Clean Catch Legionella Antigen - Final 11/05/17 15:00 Urine, Clean Catch Streptococcus pneumoniae Antigen (M - Final 11/05/17 15:00 Mucosa - Nasopharyngeal Influenza Types A,B Direct FA (ILIA) - Final Influenzae A Laboratory Results 11/07/17 05:47: WBC 21.8 H, RBC 4.70, Hgb 14.2, Hct 43.6, MCV 92.8, MCH 30.2, MCHC 32.6, RDW 13.0, RDW Differential 43.5, Plt Count 153, MPV 11.6, Immature Gran % (Auto) 0.300, Neut % (Auto) 93.3 H, Lymph % (Auto) 3.4 L, Rhea % (Auto) 3.0, Eos % (Auto) 0.0, Baso % (Auto) 0.0, Absolute Neuts (auto) 20.3 H, Absolute Lymphs (auto) 0.74 L, Total Counted Not Reportable, Differential Comment COMMENT 11/07/17 05:47: Sodium 136, Potassium 4.5, Chloride 98, Carbon Dioxide 31.0, Anion Gap 7, BUN 25 H, Creatinine 0.74, Estim Creat Clear Calc 54.05, Est GFR (MDRD) Af Amer 131, Est GFR (MDRD) Non-Af 108, BUN/Creatinine Ratio 33.7 H, Glucose 134 H, Calcium 8.9 Current Medications Acetaminophen (Tylenol) 650 mg PO Q6H PRN PRN PRN Reason: Mild Pain (scale 0-3)/T>100.7 Albuterol Sulfate (Ventolin Aerosols) 2.5 mg INHALATION Q2H PRN PRN PRN Reason: SHORTNESS OF BREATH Albuterol/Ipratropium (Duoneb) 3 ml INHALATION Q4H.RT [facility] Last Admin: 11/07/17 11:40 Dose: 3 ml Docusate Sodium (Colace) 200 mg PO BID PRN PRN PRN Reason: Constipation Enoxaparin Sodium (Lovenox) 40 mg SC DAILY [facility] Last Admin: 11/07/17 09:30 Dose: Not Given Guaifenesin (Mucinex) 1,200 mg PO BID [facility] Last Admin: 11/07/17 09:31 Dose: 1,200 mg Ceftriaxone Sodium (Rocephin) 1 gm in 50 mls @ 100 mls/hr IV Q24 [facility] Last Admin: 11/07/17 09:32 Dose: 100 mls/hr Methylprednisolone (Solu-Medrol) 40 mg IV Q8 [facility] Last Admin: 11/07/17 05:32 Dose: 40 mg Nicotine (Nicoderm Cq (Pbkc)) 21 mg TRANSDERM. DAILY [facility] Last Admin: 11/07/17 09:32 Dose: Not Given Ondansetron HCl (Zofran) 4 mg IV Q8H PRN PRN PRN Reason: Nausea Oseltamivir Phosphate (Tamiflu) 75 mg PO BID [facility] Stop: 11/10/17 10:01 Last Admin: 11/07/17 09:32 Dose: 75 mg Oxycodone HCl (Oxyir) 5 mg PO Q4H PRN PRN PRN Reason: Moderate Pain (pain scale 4-5) Polyethylene Glycol (Miralax) 17 gm PO DAILY [facility] Last Admin: 11/07/17 09:30 Dose: 17 gm Sodium Chloride () 5 - 30 ml IV UD PRN PRN Reason: SALINE FLUSH Last Admin: 11/05/17 14:58 Dose: 10 ml Medical Necessity - Tobacco Use Smoking Status: Current every day smoker - Still smokes about half pack per day. Smoking since teenage about a pack per day previously Assessment/Plan All Active Problems (Last Reviewed 09/11/17 @ 08:03 by Mi Marrero, [id number]) COPD exacerbation (Acute) History of cataract removal with insertion of prosthetic lens (Resolved) The patient is a 77 year old M with history of COPD, stage III or criteria, chronic hypoxic respiratory failure on 2 L of home oxygen, current smoker came to ER with shortness of breath, progressively getting worse since Monday along with cough. Patient denies any fever or chills. Patient gets short of breath even going to bathroom/mild exertion. He is wheezing. Patient also has frequent urination, especially at night and complete emptying of bladder probably related to undiagnosed BPH. Denies burning micturition. Chest x-ray done in the ER shows right lower lobe atelectasis probably chronic fibrosis. No evidence of acute abnormality. EKG shows sinus rhythm at 84 bpm sinus arrhythmia. 1. COPD exacerbation, exact etiology unclear but possible viral/bacterial bronchitis: Patient is being admitted on regular MedSurg floor. On bronchodilator [id number], Solu-Medrol, incentive spirometry, chest physiotherapy and Mucinex. He follows Dr. Armando as an outpatient. 2. Acute bronchitis most probably from influenza A and/or alphahemolytic streptococci: Patient did not had a fever. Started on Tamiflu yesterday. Rocephin added because of prelim Gram stain of his sputum culture shows alpha hemolytic organisms. Repeat CBC 2. Acute on chronic hypoxic respiratory failure secondary to COPD exacerbation: Currently patient is on 4 L of oxygen. His baseline is 2 L of home oxygen. Oxygen therapy and support. Pulse ox is 85% on room air at rest. On 2 L of oxygen on walking it dropped to 86-88%. 3. Current smoker with nicotine dependence: Advised smoking cessation. Nicotine patch ordered. DVT prophylaxis: On Lovenox 40 mg subcut daily. Microbiology Past 72 Hours 11/05/17 22:30 Sputum, Expectorated/Coughed Gram Stain - Final 11/05/17 22:30 Sputum, Expectorated/Coughed Respiratory Culture - Preliminary Alpha hemolytic organism 11/05/17 15:00 Urine, Clean Catch Legionella Antigen - Final 11/05/17 15:00 Urine, Clean Catch Streptococcus pneumoniae Antigen (M - Final 11/05/17 15:00 Mucosa - Nasopharyngeal Influenza Types A,B Direct FA (ILIA) - Final Influenzae A Laboratory Results 11/07/17 05:47: WBC 21.8 H, RBC 4.70, Hgb 14.2, Hct 43.6, MCV 92.8, MCH 30.2, MCHC 32.6, RDW 13.0, RDW Differential 43.5, Plt Count 153, MPV 11.6, Immature Gran % (Auto) 0.300, Neut % (Auto) 93.3 H, Lymph % (Auto) 3.4 L, Rhea % (Auto) 3.0, Eos % (Auto) 0.0, Baso % (Auto) 0.0, Absolute Neuts (auto) 20.3 H, Absolute Lymphs (auto) 0.74 L, Total Counted Not Reportable, Differential Comment COMMENT 11/07/17 05:47: Sodium 136, Potassium 4.5, Chloride 98, Carbon Dioxide 31.0, Anion Gap 7, BUN 25 H, Creatinine 0.74, Estim Creat Clear Calc 54.05, Est GFR (MDRD) Af Amer 131, Est GFR (MDRD) Non-Af 108, BUN/Creatinine Ratio 33.7 H, Glucose 134 H, Calcium 8.9 Clinical Impression(s) from Imaging Studies Chest X-Ray 11/05/17 10:29 IMPRESSION: There are findings consistent with COPD. There is no evidence of acute chest disease. Microbiology Past 72 Hours 11/05/17 22:30 Sputum, Expectorated/Coughed Gram Stain - Final 11/05/17 22:30 Sputum, Expectorated/Coughed Respiratory Culture - Preliminary Alpha hemolytic organism 11/05/17 15:00 Urine, Clean Catch Legionella Antigen - Final 11/05/17 15:00 Urine, Clean Catch Streptococcus pneumoniae Antigen (M - Final 11/05/17 15:00 Mucosa - Nasopharyngeal Influenza Types A,B Direct FA (ILIA) - Final Influenzae A Active Medications Acetaminophen (Tylenol) 650 mg PO Q6H PRN PRN PRN Reason: Mild Pain (scale 0-3)/T>100.7 Albuterol Sulfate (Ventolin Aerosols) 2.5 mg INHALATION Q2H PRN PRN PRN Reason: SHORTNESS OF BREATH Albuterol/Ipratropium (Duoneb) 3 ml INHALATION Q4H.RT [facility] Last Admin: 11/07/17 11:40 Dose: 3 ml Docusate Sodium (Colace) 200 mg PO BID PRN PRN PRN Reason: Constipation Enoxaparin Sodium (Lovenox) 40 mg SC DAILY [facility] Last Admin: 11/07/17 09:30 Dose: Not Given Guaifenesin (Mucinex) 1,200 mg PO BID [facility] Last Admin: 11/07/17 09:31 Dose: 1,200 mg Ceftriaxone Sodium (Rocephin) 1 gm in 50 mls @ 100 mls/hr IV Q24 [facility] Last Admin: 11/07/17 09:32 Dose: 100 mls/hr Methylprednisolone (Solu-Medrol) 40 mg IV Q8 [facility] Last Admin: 11/07/17 05:32 Dose: 40 mg Nicotine (Nicoderm Cq (Pbkc)) 21 mg TRANSDERM. DAILY [facility] Last Admin: 11/07/17 09:32 Dose: Not Given Ondansetron HCl (Zofran) 4 mg IV Q8H PRN PRN PRN Reason: Nausea Oseltamivir Phosphate (Tamiflu) 75 mg PO BID [facility] Stop: 11/10/17 10:01 Last Admin: 11/07/17 09:32 Dose: 75 mg Oxycodone HCl (Oxyir) 5 mg PO Q4H PRN PRN PRN Reason: Moderate Pain (pain scale 4-5) Polyethylene Glycol (Miralax) 17 gm PO DAILY [facility] Last Admin: 11/07/17 09:30 Dose: 17 gm Sodium Chloride () 5 - 30 ml IV UD PRN PRN Reason: SALINE FLUSH Last Admin: 11/05/17 14:58 Dose: 10 ml Code Visit Inpatient E&M: 19200 Subs Hosp L3
[2017-11-07] MEDS: Acetylcysteine 800 MG/4 ML VIAL.NEB. INHALATION ×2 (14:28→19:30)
[2017-11-07] MEDS: 0.9% NaCl Peripheral Flush Adult/Peds IV (14:30)
[2017-11-07] MEDS: Tamsulosin HCl 0.4 MG Capsule PO (17:00)
[2017-11-07 17:06] LABS: Bacteria 0 SEEN /hpf (None Seen); Mucous, Urine 0 SEEN /hpf (<or=2+); Squamous Epithelial Cells - UA 0 SEEN /hpf (0-5)
[2017-11-07 17:40] LABS: Color, Urine Yellow (Yellow); Glucose, Dipstick Normal (Normal); Ketone-Dipstick Negative (Negative); Leukocyte Esterase-Dipstick Negative /ul (Negative); Nitrite-Dipstick Negative (Negative); Occult Blood-Urine 25 /ul (Negative); Protein-Dipstick Negative (Negative); Specific Gravity, Urine 1.015 (1.002-1.030); Urine Bilirubin Dipstick Negative (Negative); Urine Clarity Clear (Clear); Urine Urobilinogen Normal (Normal)
[2017-11-07 17:48] LABS: Red Blood Cells-Urine 0-5 SEEN /hpf (0-5); White Blood Cells 0-5 SEEN /hpf (0-5)
[2017-11-08 02:05] VITALS: BP 140/75; PULSE 100; RESP 18; TEMP 36.6; O2SAT 94
[2017-11-08 07:12] VITALS: PULSE 100; RESP 20; O2SAT 96
[2017-11-08] MEDS: Acetylcysteine 800 MG/4 ML VIAL.NEB. INHALATION (07:12)
[2017-11-08] MEDS: Ipratropium/Albuterol Sulfate 3 ML AMPUL.NEB INHALATION ×2 (07:12→11:28)
[2017-11-08 08:05] VITALS: BP 159/67; PULSE 102; RESP 20; TEMP 36.4; O2SAT 95
[2017-11-08] MEDS: Ceftriaxone 1 GM/50 ML BAG IV (09:33)
[2017-11-08] MEDS: Polyethylene Glycol 3350 17 GM PACKET PO (09:35)
[2017-11-08] MEDS: guaiFENesin 1,200 MG Tablet 1200 MG PO (09:38)
[2017-11-08] MEDS: Oseltamivir Phosphate 75 MG Capsule PO (09:38)
[2017-11-08 11:03] VITALS: O2SAT 95
[2017-11-08 11:28] VITALS: PULSE 98; RESP 22
--- NOTE | 2017-11-08 11:49 | DCINST_ITS ---
- Discharge Diagnoses Current Active Problems: Current Active and Chronic Problems (Last Reviewed 09/11/17 @ 08:03 by MELVIN Romero) COPD exacerbation (Acute) You will use the following diet at home:: Cardiac Call your doctor if you observe: Fever of 101 or Higher, Inability to urinate, Shortness of breath, Increased palpitations (irregular heartbeat), Calf discomfort Allergies/Adverse Reactions: Allergies No Known Allergies Allergy (Verified 11/05/17 10:09) pollens Allergy (Severe, Uncoded 11/05/17 10:09) Unknown Medications to take at Discharge albuterol sulfate HFA 90 mcg/actuation aerosol inhaler 1 - 2 puff INHALATION Q4H PRN PRN #3 device 11/01/17 tiotropium 2.5 mcg-olodaterol 2.5 mcg/actuation mist for inhalation 2 puff INHALATION QDAY #3 device 11/01/17 Cefadroxil [Duracef] 500 mg PO BID #10 cap 11/08/17 Guaifenesin [Mucinex] 1,200 mg PO BID #14 tab 11/08/17 Lisinopril [Zestril] 5 mg PO DAILY #30 tab 11/08/17 Nicotine [Nicoderm Cq] 21 mg TRANSDERM. DAILY patch 11/08/17 Oseltamivir Phosphate [Tamiflu] 75 mg PO BID #5 cap 11/08/17 Prednisone 10 mg PO UD #30 tab 11/08/17 Tamsulosin HCl [Flomax] 0.4 mg PO DAILY@1730 #30 cap 11/08/17 The following prescriptions were given: Lisinopril [Zestril] 5 mg PO DAILY #30 tab Prednisone 10 mg PO UD #30 tab Tamsulosin HCl [Flomax] 0.4 mg PO DAILY@1730 #30 cap Cefadroxil [Duracef] 500 mg PO BID #10 cap Guaifenesin [Mucinex] 1,200 mg PO BID #14 tab Oseltamivir Phosphate [Tamiflu] 75 mg PO BID #5 cap Primary Care Physician: Care Physician,No Primary [Primary Care Provider] - Please follow up with your Primary Care Physician in: in 1-2 weeks Test Results: Test results from this visit will be discussed in further detail at your follow- up appointment, if applicable. Please Follow Up With: Cornel Armando MD When: in 4 weeks for chr resp failure, COPD
--- NOTE | 2017-11-08 11:51 | PCM.DC.SUM ---
Discharge Date and Diagnosis Date of Admission: 11/05/17 Date of Discharge: 11/08/17 - Primary Discharge Diagnosis Active and Suspected Problems (Last Reviewed 09/11/17 @ 08:03 by MELVIN Romero) COPD exacerbation (Acute) COPD exacerbation, most likely secondary to influenza A and alphahemolytic streptococci bronchitis with active nicotine/smoking dependence: 2. Acute bronchitis secondary to influenza A and/or alphahemolytic streptococci: 2. Acute on chronic hypoxic respiratory failure secondary to COPD exacerbation: 3. Current smoker with nicotine dependence: Advised smoking cessation. Nicotine patch continued 4.new diagnosis of hypertension: - Secondary Discharge Diagnosis Chronic Problems (Last Reviewed 09/11/17 @ 08:03 by MELVIN Romero) SOB (shortness of breath) (Chronic) Tobacco abuse (Chronic) Stage 3 severe COPD by GOLD classification (Chronic) Chronic hypoxemic respiratory failure (Chronic) Hospital Course and Treatment Summary of Care Provided: [] The patient is a 77 year old M with history of COPD, stage III or criteria, chronic hypoxic respiratory failure on 2 L of home oxygen, current smoker came to ER with shortness of breath, progressively getting worse since Monday along with cough. Patient denies any fever or chills. Patient gets short of breath even going to bathroom/mild exertion. He is wheezing. Patient also has frequent urination, especially at night and complete emptying of bladder probably related to undiagnosed BPH. Denies burning micturition. Chest x-ray done in the ER shows right lower lobe atelectasis probably chronic fibrosis. No evidence of acute abnormality. EKG shows sinus rhythm at 84 bpm with sinus arrhythmia. Patient was seen and examined today. General: Alert, Oriented x3, Cooperative HEENT: Atraumatic, PERRLA, EOMI, Normocephalic Neck: Supple, No JVD, Negative Carotid Bruits Lungs: Air entry diminished bilaterally but improved. Mild expiratory rhonchi. No respiratory distress. Cardiovascular: Regular rate, Regular Rhythm, Normal S1, Normal S2, No murmurs Abdomen: Bowel Sounds Present, Soft, Non Tender, Non-Distended Extremities: No edema, Capillary Refill Less than 3 Seconds Skin: No rashes, No breakdown Musculoskeletal: No Tenderness to Palpation of Joints or Extremities Neurological: Cranial nerves II-XII grossly intact Psych/Mental Status: Normal Affect, Appropriate 1. COPD exacerbation, most likely secondary to influenza A and alphahemolytic streptococci bronchitis with active nicotine/smoking dependence: Patient is being admitted on regular MedSurg floor. On bronchodilator [id number], Solu-Medrol, incentive spirometry, chest physiotherapy and Mucinex. Chest x-ray does not show acute infiltrate or active pulmonary disease. He follows Dr. Armando as an outpatient. Smoking cessation was advised. Outpatient nicotine patch. 2. Acute bronchitis secondary to influenza A and/or alphahemolytic streptococci: Patient did not had a fever. Started on Tamiflu yesterday. Rocephin added because of prelim Gram stain of his sputum culture shows alpha hemolytic organisms. Patient is discharged on 5 more days of cefadroxil to complete 8 days of antibiotics. Discharged on Tamiflu. 2. Acute on chronic hypoxic respiratory failure secondary to COPD exacerbation: Currently patient is on 4 L of oxygen. His baseline is 2 L of home oxygen. Oxygen therapy and support. Pulse ox is 85% on room air at rest. On 2 L of oxygen on walking it dropped to 86-88%. Pulse ox 92% on 3 L on walking and 91% on room air at rest 3. Current smoker with nicotine dependence: Advised smoking cessation. Nicotine patch continued 4. Hypertension: Blood pressure is elevated. Discharged on lisinopril 5 mg daily. DVT prophylaxis: On Lovenox 40 mg subcut daily. patient is discharged on home oxygen and DuoNeb nebulizer equipment. Prescription given for DuoNeb. Patient has medication refill of stilto and albuterol. Discharged on tapering dose of prednisone. Discharge medication reconciliation done. Discharge follow-up instructions given. Follow-up Dr. Armando. Total time spent, exact 35 minutes on discharge meds reconciliation, examination, review of imaging and blood test and discussion with the patient on follow-up instructions. Call your doctor if you observe: Fever of 101 or Higher, Inability to urinate, Shortness of breath, Increased palpitations (irregular heartbeat), Calf discomfort Home Medications: Medications to take at Discharge albuterol sulfate HFA 90 mcg/actuation aerosol inhaler 1 - 2 puff INHALATION Q4H PRN PRN #3 device 11/01/17 tiotropium 2.5 mcg-olodaterol 2.5 mcg/actuation mist for inhalation 2 puff INHALATION QDAY #3 device 11/01/17 Cefadroxil [Duracef] 500 mg PO BID #10 cap 11/08/17 Guaifenesin [Mucinex] 1,200 mg PO BID #14 tab 11/08/17 Ipratropium/Albuterol Sulfate [Duoneb] 3 ml INHALATION Q4H PRN PRN #50 ampul.neb 11/08/17 Lisinopril [Zestril] 5 mg PO DAILY #30 tab 11/08/17 Nicotine [Nicoderm Cq] 21 mg TRANSDERM. DAILY patch 11/08/17 Oseltamivir Phosphate [Tamiflu] 75 mg PO BID #5 cap 11/08/17 Prednisone 10 mg PO UD #30 tab 11/08/17 Tamsulosin HCl [Flomax] 0.4 mg PO DAILY@1730 #30 cap 11/08/17 Following Prescrptions Were Given to Patient: Ipratropium/Albuterol Sulfate [Duoneb] 3 ml INHALATION Q4H PRN PRN #50 ampul.neb PRN Reason: Sob &/Or Wheezing Lisinopril [Zestril] 5 mg PO DAILY #30 tab Prednisone 10 mg PO UD #30 tab Tamsulosin HCl [Flomax] 0.4 mg PO DAILY@1730 #30 cap Cefadroxil [Duracef] 500 mg PO BID #10 cap Guaifenesin [Mucinex] 1,200 mg PO BID #14 tab Oseltamivir Phosphate [Tamiflu] 75 mg PO BID #5 cap Primary Care Physician: Care Physician,No Primary [Primary Care Provider] - Please follow up with your Primary Care Physician in: in 1-2 weeks Please Follow Up With: Cornel Armando MD When: in 4 weeks for chr resp failure, COPD Medical Necessity - Tobacco Use Smoking Status: Current every day smoker - Still smokes about half pack per day. Smoking since teenage about a pack per day previously Meaningful Use Info Meaningful Use Diagnoses (Choose all that apply): None applicable Code Visit Inpatient E&M: 90312 Disch Hosp
[2017-11-08 12:00] VITALS: O2SAT 85; O2SAT 91; O2SAT 92
== END 2017-11-08 13:47 | disposition home or self-care (01) | DRG 190 ==
LOC: ED 11:41 → MS3 13:04
PROVIDERS: Admitting Provider Internal Medicine; Emergency Provider Emergency Medicine; Visit Provider Internal Medicine
DX: J44.0 Chronic obstructive pulmonary disease with (acute) lower respiratory infection (principal); J96.21 Acute and chronic respiratory failure with hypoxia; J10.1 Influenza due to other identified influenza virus with other respiratory manifestations; J44.1 Chronic obstructive pulmonary disease with (acute) exacerbation; J20.2 Acute bronchitis due to streptococcus; F17.200 Nicotine dependence, unspecified, uncomplicated; I10 Essential (primary) hypertension; Z99.81 Dependence on supplemental oxygen
CPT/HCPCS: 36415; 71045; 80048; 81001; 84484; 85025; 87070; 87086; 87205; 87449; 87804; 93005; 94640; 94667; 94668; 99285; 99406; J7030; A4216

== ENCOUNTER → 2017-11-22 15:33 | Outpatient (CLI) | payer MEDICARE, OTHER, SELFPAY ==
--- NOTE | 2017-11-22 15:36 | VDLE_ITS ---
Reason For Study: LEG SWELLING RIGHT LEFT CFV is compressible, spontaneous, phasic, GSV is normal. competent and demonstrates normal CFV is compressible, spontaneous, phasic, augmentation. competent, and demonstrates normal Procedure augmentation. Exam performed in department. FV is compressible, spontaneous, phasic, A preliminary report was called and/or faxed competent and demonstrates normal to Breana Marrero. augmentation. POP V is compressible, spontaneous, phasic, competent and demonstrates normal augmentation. T/P Trunk is compressible. PTV is compressible. LT PerV is compressible. Gastroc vein is dilated and non-compressible with mixed intraluminal echoes. Thrombus appears to be acute on chronic. Interpretation Summary Acute and chronic deep vein thrombosis is noted in the left gastrocnemius vein. The remainder of the left lower extremity deep venous system is patent and compressible. Valvular competence appears intact within the proximal deep venous system on the left . The left greater saphenous vein appears patent and compressible segmentally. Ordering Physician: Mi Marrero Referring Physician: Mi Marrero Performed By: Jasmina Oviedo RVT
== END ==
PROVIDERS: Referring Provider Nurse Practitioner Acute Care; Visit Provider Nurse Practitioner Acute Care
DX: R06.02 Shortness of breath (principal)
CPT/HCPCS: 93971

== ENCOUNTER → 2018-01-15 13:33 | Outpatient (CLI) | payer MEDICARE, OTHER, SELFPAY ==
--- NOTE | 2018-01-15 13:37 | ECHOCS_ITS ---
Reason For Study: SOB Procedure This was a 2D Doppler, Color Flow transthoracic echocardiogram. Contrast injection was performed. Exam performed in department. Left Ventricle Normal LV size. Mild concentric left ventricular hypertrophy. Left ventricular systolic function is normal. The estimated ejection fraction is 55 %. No regional wall motion abnormalities noted. Right Ventricle Normal RV size. Normal systolic function. Atria Normal left atrium. Normal right atrium. Mitral Valve Normal mitral valve. Tricuspid Valve The tricuspid valve is not well visualized. Mild (1+) tricuspid valve insufficiency. Right ventricular systolic pressure estimated to be 44 mmHg. Aortic Valve Trisinus/trileaflet aortic valve. Pulmonic Valve The pulmonic valve is not well visualized. Great Vessels Normal aortic root. The pulmonary artery is normal size. Normal inferior vena cava. Pericardium/Pleural No pericardial effusion. Medication Definity0.3ml given slow IV push to enhance endocardial definition. MMode/2D Measurements & Calculations LVIDd: 4.4 cm IVSd: 1.3 cm Ao root diam: 2.8 cm LVIDs: 3.2 cm LVPWd: 1.2 cm RVDd: 3.5 cm FS: 27.9 % LAV(MOD-bp): 27.8 ml LVAd ap4: 33.6 cm2 SV(MOD-sp4): 82.3 ml LAV(MOD-bp) Indexed: 14.9 ml/m2 EDV(MOD-sp4): 118.8 ml LAV(MOD-sp2): 37.3 ml EDV(sp4-el): 118.0 ml LAV(MOD-sp4): 16.6 ml LVAs ap4: 16.0 cm2 ESV(MOD-sp4): 36.5 ml ESV(sp4-el): 35.9 ml EF(MOD-sp4): 69.2 % EF(sp4-el): 69.5 % SV(sp4-el): 82.0 ml LA A4 area: 9.9 cm2 LA dimension(2D): 3.6 cm RA A4 area: 12.9 cm2 Doppler Measurements & Calculations MV E max alf: 68.0 cm/sec Lat Peak E' Alf: 8.5 cm/sec Med Peak E' Alf: 5.5 cm/sec MV A max alf: 63.1 cm/sec E/E' lat: 8.0 E/E' med: 12.4 MV E/A: 1.1 Ao V2 max: 116.9 cm/sec LV V1 max: 101.8 cm/sec PA V2 max: 82.7 cm/sec Ao max P.5 mmHg LV V1 max P.1 mmHg Ao V2 mean: 84.0 cm/sec Ao mean P.1 mmHg Ao V2 VTI: 28.2 cm TR max alf: 333.4 cm/sec TR max P.5 mmHg Interpretation Summary Normal LV size. Mild concentric left ventricular hypertrophy. Mild (1+) tricuspid valve insufficiency. Right ventricular systolic pressure estimated to be 44 mmHg. Contrast injection was performed. Ordering Physician: Luis F Santoyo Referring Physician: Luis F Santoyo Performed By: Erin Ortega, YAN, RVT
== END ==
PROVIDERS: Family Provider Family Medicine; PCP Family Medicine; Referring Provider Family Medicine; Visit Provider Family Medicine
DX: R06.02 Shortness of breath (principal)
CPT/HCPCS: 93306; Q9957; A4216; C8929

== ENCOUNTER → 2019-03-11 14:09 | Outpatient (CLI) | payer MEDICARE, OTHER, SELFPAY ==
[2019-02-18 13:21] VITALS: BMI 27.3
--- NOTE | 2019-03-11 14:13 | US_ITS ---
STUDY: ULTRASOUND - URINARY BLADDER REASON FOR EXAM: Male, 78 years old. INCOMPLETE BLADDER EMPTYING PRE AND POST VOID TECHNIQUE: Ultrasound evaluation of the urinary bladder was performed with real-time and static morris-scale imaging. COMPARISON: None. FINDINGS: There is no right UVJ calculus. There is a visualized right ureteral jet. There is no left UVJ calculus. There is a visualized left ureteral jet. The prevoid volume of the urinary bladder is 126 ml. The post void volume of the urinary bladder is 71 ml. The bladder wall is within normal limits. The bladder wall measures 1.9 mm.. There is no demonstrated bladder wall mass lesion. There are no demonstrated bladder calculi. The prostate gland measures 4.5 x 3.4 x 5.1 cm. There is a small calcification in the prostate. US/Post Void Residual Bladder IMPRESSION: Urinary retention with postvoid residual of 71 mL. Mildly enlarged prostate. Electronically Signed: Enrique Ambrosio MD at 6:02 EST , Service support ,
== END ==
PROVIDERS: PCP Family Medicine; Referring Provider Family Medicine; Visit Provider Family Medicine
DX: R33.9 Retention of urine, unspecified (principal)
CPT/HCPCS: 51798

== ENCOUNTER → 2020-05-20 15:36 | Outpatient (CLI) | payer MEDICARE, OTHER, SELFPAY ==
[2019-12-02 13:26] VITALS: BMI 26.4
[2020-05-20 17:47] LABS: Absolute Lymphocyte Count 1.41 X10^3/uL (0.83-4.51); Absolute Neutrophil Count 3.4 X10^3/uL (2.0-7.7); Basophil# 0.04 X10^3/uL; Basophil% 0.7 % (0-1); Eosinophil# 0.21 X10^3/uL; Eosinophils% 3.8 % (0-5); Hematocrit 45.3 % (40-54); Hemoglobin 14.1 g/dL (13.0-16.5); Lymphocyte # 1.41 X10^3/ul (4.0); Lymphocyte % 25.8 % (19-41); Mean Corp Hgb Conc 31.1 g/dL (32-36); Mean Corpuscular Hgb 29.3 pg (27.0-32.0); Mean Corpuscular Volume 94.2 fL (80-94); Mean Platelet Vol. 10.9 fl (6.2-12.0); Monocyte# 0.43 X10^3/uL; Monocyte% 7.9 % (0-10); NRBC Flagged by Analyzer 0 % (0-5); Neutrophil # 3.37 X10^3/uL (2.7-7.7); Neutrophil % 61.6 % (47-70); Platelet Count 159 K/mm3 (150-450); RBC Distribution Width CV 13.6 % (11.6-14.6); RBC Distribution Width SD 46.5 fl (35.1-43.9); Red Blood Count 4.81 M/mm3 (4.6-6.2); White Blood Count 5.5 K/mm3 (4.4-11.0)
[2020-05-20 18:15] LABS: ALB/GLOB Ratio 1.2 RATIO (0.9-2.4); AST(SGOT) 25 U/L (15-37); Alanine Aminotransfer ALT/SGPT 23 U/L (16-61); Albumin, Serum 3.7 g/dL (3.2-5.0); Alkaline Phosphatase 85 U/L (45-117); Anion Gap 2 (5-15); BUN 18 mg/dL (7-18); Calcium,Total 8.6 mg/dL (8.5-10.1); Chloride 107 mmol/L (98-107); Creatinine, Serum 0.82 mg/dL (0.70-1.30); EST Glomerular Filtration Rate 96 mL/min (>60); Est Glom Filt Rate - Afr Amer 116 mL/min (>60); Globulin 3.1 g/dL (2.2-4.2); Glucose 82 mg/dL (74-106); Potassium 3.8 mmol/L (3.5-5.1); Protein, Total 6.8 g/dL (6.4-8.2); Sodium Level 139 mmol/L (136-145)
== END ==
PROVIDERS: PCP Family Medicine; Referring Provider Family Medicine; Visit Provider Family Medicine
DX: J44.9 Chronic obstructive pulmonary disease, unspecified (principal)
CPT/HCPCS: 36415; 80053; 85025

== ENCOUNTER 2021-05-12 14:56 | Outpatient (CLI) | payer MEDICARE, OTHER, SELFPAY ==
[2021-05-12 17:35] LABS: Absolute Lymphocyte Count 1.54 X10^3/uL (0.83-4.51); Absolute Neutrophil Count 5.6 X10^3/uL (2.0-7.7); Basophil# 0.05 X10^3/uL; Basophil% 0.6 % (0-1); Eosinophil# 0.21 X10^3/uL; Eosinophils% 2.6 % (0-5); Hematocrit 48.9 % (40-54); Hemoglobin 15.2 g/dL (13.0-16.5); Lymphocyte # 1.54 X10^3/ul (0.83-4.51); Lymphocyte % 19.3 % (19-41); Mean Corp Hgb Conc 31.1 g/dL (32-36); Mean Corpuscular Hgb 29.3 pg (27.0-32.0); Mean Corpuscular Volume 94.2 fL (80-94); Mean Platelet Vol. 11.1 fl (6.2-12.0); Monocyte# 0.57 X10^3/uL; Monocyte% 7.1 % (0-10); NRBC Flagged by Analyzer 0 % (0-5); Neutrophil # 5.61 X10^3/uL (2.7-7.7); Neutrophil % 70.1 % (47-70); Platelet Count 201 K/mm3 (150-450); RBC Distribution Width CV 13.3 % (11.6-14.6); RBC Distribution Width SD 46.4 fl (35.1-43.9); Red Blood Count 5.19 M/mm3 (4.6-6.2)
[2021-05-12 17:53] LABS: AST(SGOT) 26 U/L (15-37); Alanine Aminotransfer ALT/SGPT 24 U/L (16-61); Albumin, Serum 3.9 g/dL (3.2-5.0); Alkaline Phosphatase 106 U/L (45-117); Anion Gap 6 (5-15); BUN 15 mg/dL (7-18); BUN/Creat Ratio 18.5 RATIO (10-20); Bilirubin, Direct 0.15 mg/dL (0.00-0.30); Calcium,Total 8.7 mg/dL (8.5-10.1); Chloride 104 mmol/L (98-107); Creatinine, Serum 0.81 mg/dL (0.70-1.30); EST Glomerular Filtration Rate 97 mL/min (>60); Est Glom Filt Rate - Afr Amer 117 mL/min (>60); Globulin 3.1 g/dL (2.2-4.2); Glucose 84 mg/dL (74-106); Potassium 4.8 mmol/L (3.5-5.1); Sodium Level 139 mmol/L (136-145)
== END 2021-05-12 23:59 | disposition home or self-care (01) ==
LOC: MFPLAB 15:04
PROVIDERS: PCP Family Medicine; Referring Provider Family Medicine; Visit Provider Family Medicine
DX: L29.9 Pruritus, unspecified (principal); J44.9 Chronic obstructive pulmonary disease, unspecified; R17 Unspecified jaundice
CPT/HCPCS: 36415; 80048; 80076; 85025

== ENCOUNTER 2021-07-20 13:18 | Emergency (ER) | payer MEDICARE, OTHER, SELFPAY ==
[2021-07-20 13:19] VITALS: BP 168/78; PULSE 90; RESP 14; TEMP 36.6; O2SAT 91; BMI 27.7
--- NOTE | 2021-07-20 13:39 | EX.ED.DYSGE1 ---
HPI History of Present Illness Chief Complaint: Rash Informant: patient and spouse/S.O. Onset/Context/Timing Onset: Month(s) Context: Gradual Onset Current Severity: Moderate Maximum Severity: Moderate Narrative Narrative: Patient present secondary to rash to bilateral arms. He states symptoms started in April. He initially had a small patch of dry skin on his left forearm. He was seen by his primary care physician as well as his traffic incident management manager who told him it was just dry skin. Since then the rash has spread from wrist to mid upper arm on both arms. He has not seen his traffic incident management manager about this since. He presents today because he is supposed to have surgery for skin cancer on his nose next week and wanted this rash to be healed up. He does report the rash is pruritic. He recently started taking Benadryl but states that is not helping. He has been applying several different creams topically to try to help with the rash. [facility] Medical History Chronic hypoxemic respiratory failure DVT (deep venous thrombosis) SOB (shortness of breath) Stage 3 severe COPD by GOLD classification Tobacco abuse Home Medications ipratropium 0.5 mg-albuterol 3 mg (2.5 mg base)/3 mL nebulization soln 3 ml INHALATION Q4H PRN PRN #180 ea 11/22/17 [Rx Last Taken Unknown] albuterol sulfate 90 mcg/actuation aerosol inhaler 1 - 2 puff INHALATION Q4H PRN PRN #3 device 02/21/20 [Rx Last Taken Unknown] tiotropium 2.5 mcg-olodaterol 2.5 mcg/actuation mist for inhalation 2 puff INHALATION QDAY #3 device 04/06/21 [Rx Last Taken Unknown] hydroxyzine pamoate [Vistaril] 25 mg PO TID PRN #20 cap 07/20/21 [Rx Last Taken Unknown] Allergy/AdvReac Type Severity Reaction Status Date / Time clindamycin Allergy Unknown C-Diff Verified 07/20/21 13:19 pollens Allergy Severe Unknown Uncoded 07/20/21 13:19 Family History Brother Osteoporosis Father Cancer Mother Arthritis Osteoporosis Surgical History H/O tooth extraction History of cataract removal with insertion of prosthetic lens S/P skin biopsy Social History Smoking Status: Unknown if ever smoked second hand exposure: Yes alcohol intake: never substance use type: does not use caffeine: Yes Type: coffee what type of physical activity do you participate in: none ROS ROS ED Constitutional Constitutional ED: Denies chills or fever(s) Eyes Eyes: Denies change in vision ENT ENT ED: Denies sore throat Cardiovascular Cardiovascular: Denies chest pain Respiratory/Chest Respiratory/Chest: Denies cough or dyspnea Gastrointestinal Gastrointestinal: Denies abdominal pain, nausea or vomiting Genitourinary Genitourinary ED: Denies dysuria Musculoskeletal Musculoskeletal: Denies back pain Integumentary Reports rash Neurologic Neurologic: Denies headache(s) or weakness Allergic/Immunologic Allergic/Immunologic ED: Denies mouth swelling, tongue swelling or urticaria EXAM Physical Exam Const Vital Signs: 07/20/21 13:19 Temperature 98 F Temperature Source Temporal Pulse Rate 90 Respiratory Rate 14 Blood Pressure 168/78 H Blood Pressure Mean 108 Pulse Ox 91 Oxygen Delivery Method Room Air Positive well nourished and well developed General Appearance ED: well developed HEENT Reports moist mucous membranes Eyes PERRL and EOMs intact bilaterally Neck supple Chest Wall inspection of chest normal and palpation of chest normal Resp normal respiratory effort and clear to auscultation bilaterally Cardio regular rate and regular rhythm GI non-tender Palpation: soft Extremity Extremity Narrative: Flat erythematous rash to the dorsal aspect of the forearms and distal upper arms bilaterally. No vesicles noted. No target lesions. No open wounds or draining. Neuro oriented x3 Sensorium / Orientation: alert Psych mental status grossly normal MDM [facility] Treatment and Re-Evaluation Narrative: I advised the patient that with 3 months of symptoms I do feel he should be evaluated by his traffic incident management manager for definitive diagnosis. I will treat him with Vistaril to help control itching. He will call his traffic incident management manager this afternoon. Discharge Plan Triage Chief Complaint: Rash ED Provider: Gertrudis Casillas Dx/Rx/DC Orders Clinical Impression: Rash Instructions: ED Contact Dermatitis Prescriptions: New hydroxyzine pamoate [Vistaril] 25 mg capsule 25 mg PO TID PRN (Reason: itching) Qty: 20 RF: 0 No Action ipratropium-albuterol 0.5 mg-3 mg(2.5 mg base)/3 mL solution for nebulization 3 ml Inhalation Q4H PRN PRN (Reason: Sob &/Or Wheezing) Qty: 180 RF: 6 albuterol sulfate 90 mcg/actuation HFA aerosol inhaler 1 - 2 puff INHALATION Q4H PRN PRN (Reason: Wheezing) Qty: 3 RF: 3 Stiolto Respimat 2.5-2.5 mcg/actuation mist 2 puff INHALATION QDAY Qty: 3 RF: 3 Primary Care Provider: Luis F Santoyo Referrals: Luis F Santoyo MD [Primary Care Provider] - Activity Restrictions/Additional Instructions: As discussed, please follow-up with your traffic incident management manager as soon as possible. They may need a punch biopsy of the lesion to help with diagnosis. Vistaril has been prescribed to help control the itch. Disposition Disposition: Home, Self Care Discharge Date/Time: 07/20/21 13:56
[2021-07-20] MEDS: hydrOXYzine PAM 25 MG Capsule 50 MG PO (13:44)
== END 2021-07-20 13:56 | disposition home or self-care (01) ==
LOC: ED 13:55
PROVIDERS: Emergency Provider Emergency Medicine; PCP Family Medicine; Visit Provider Emergency Medicine
DX: R21 Rash and other nonspecific skin eruption (principal); Z86.718 Personal history of other venous thrombosis and embolism
CPT/HCPCS: 99283

== ENCOUNTER → 2023-05-24 | Outpatient (CLI) | payer MEDICARE, OTHER, SELFPAY ==
[2023-05-26 15:08] LABS: Lyme Scn Total Ab w/Rflx Negative (Negative)
== END | disposition home or self-care (01) ==
LOC: MFPLAB 13:52
PROVIDERS: PCP Family Medicine; Visit Provider Family Medicine
DX: A69.20 Lyme disease, unspecified (principal)
CPT/HCPCS: 36415; 86618